=== PATIENT | female | born 1965 | race Caucasian/White ===

== ENCOUNTER → 2018-07-09 | Outpatient (CLI) | payer OTHER ==
[~2018-07-09] MED LIST: BLAC20TA PO
[2018-07-09 15:29] LABS: MICROSCOPIC AUTO
[2018-07-09 15:30] LABS: CULTURE INDICATED? NO
[2018-07-09 15:31] LABS: BASOPHILS # (AUTO) 0.04 x10^3/uL (0-0.1); BASOPHILS % (AUTO) 1 % (0-1); EOSINOPHILS % (AUTO) 2 % (1-7); LYMPHOCYTES # (AUTO) 2.41 x10^3/uL (1-3.4); LYMPHOCYTES % (AUTO) 38 % (22-44); MD NO; MEAN CORPUSCULAR HEMOGLOBIN 31.9 pg (27.0-34.8); MEAN CORPUSCULAR HGB CONC 33.9 g/dL (32.4-35.8); MEAN PLATELET VOLUME 8.4 fL (7.4-10.4); MONOCYTES # (AUTO) 0.57 x10^3/uL (0.2-0.8); MONOCYTES % (AUTO) 9 % (2-9); NEUTROPHILS # (AUTO) 3.14 x10^3/uL (1.8-6.8); NEUTROPHILS % (AUTO) 50 % (42-75); PLATELET COUNT 229 x10^3/uL (130-400); RED BLOOD COUNT 4.38 x10^6/uL (3.82-5.3); RED CELL DISTRIBUTION WIDTH 13.7 % (9.6-15.2)
== END | disposition home or self-care (01) ==
LOC: STAR 14:27
PROVIDERS: ATTEND Obstetrics & Gynecology
DX: Z01.812 Encounter for preprocedural laboratory examination (principal); N95.0 Postmenopausal bleeding
CPT/HCPCS: 36415; 81001; 85025

== ENCOUNTER 2018-07-13 06:01 | Day surgery (SDC) | payer OTHER, BC ==
[~2018-07-13] VITALS: Ht 162.6 cm; Wt 67.7 kg
[2018-07-13] MEDS ORDERED: LACTATED RINGERS 1,000 ML IV SCH (06:32)
[2018-07-13 06:45] VITALS: BP 120/75
[2018-07-13] MEDS ORDERED: ACETAMINOPHEN 500 MG TABLET PO ONE (07:00)
[2018-07-13] MEDS ORDERED: MIDAZOLAM 1 MG/ML, 2ML ONE (07:09)
[2018-07-13] MEDS ORDERED: FENTANYL PF 250 MCG/5ML ONE (07:10)
[2018-07-13] MEDS ORDERED: FENTANYL PF 100 MCG/2ML IV PRN (07:30)
[2018-07-13] MEDS ORDERED: OXYcodone 5 MG/5 ML ORAL.SOL UDC PO PRN (07:30)
[2018-07-13] MEDS ORDERED: PROMETHAZINE 25 MG/ML, 1ML IV PRN (07:30)
[2018-07-13] MEDS ORDERED: MEPERIDINE/PF 25MG/0.5ML IVPush PRN (07:30)
[2018-07-13] MEDS ORDERED: ONDANSETRON 2MG/ML, 2ML IV PRN (07:30)
[2018-07-13] MEDS ORDERED: hydrALAzine 20 MG/ML, 1ML IV PRN (07:30)
[2018-07-13] MEDS ORDERED: LABETALOL 5MG/ML, 20ML IV PRN (07:30)
[2018-07-13] MEDS ORDERED: HYDROmorphone 2 MG/ML, 1ML IVPush PRN (07:30)
[2018-07-13] MEDS ORDERED: SILVER NITRATE STICK TP ONE (07:36)
[2018-07-13] MEDS ORDERED: PROPOFOL 10 MG/ML, 20ML ONE (08:01)
[2018-07-13] MEDS ORDERED: CEFAZOLIN 1,000 MG ONE (08:06)
[2018-07-13] MEDS ORDERED: DEXAMETHASONE 4 MG/ML, 1ML ONE (08:07)
[2018-07-13] MEDS ORDERED: EPHEDRINE 50 MG/ML, 1ML ONE (08:08)
[2018-07-13] MEDS ORDERED: ONDANSETRON 2MG/ML, 2ML ONE (08:16)
== END 2018-07-13 10:15 | disposition home or self-care (01) ==
LOC: OUT 06:01
PROVIDERS: ATTEND Obstetrics & Gynecology
DX: N95.0 Postmenopausal bleeding (principal)
CPT/HCPCS: 58558; 88305; J0690; J1100; J2250; J2405; J2704; J3010